=== PATIENT | male | born 1960 | race Caucasian/White ===

== ENCOUNTER 2021-09-22 14:12 | Emergency (ER) | payer OTHER, SELFPAY ==
[2021-09-22] VITALS (7 sets, daily range): BP systolic 195–201; BP diastolic 98–117; PULSE 85; RESP 16–18; TEMP 36.8; O2SAT 93–96; BMI 39.1
--- NOTE | 2021-09-22 14:43 | XR_ITS ---
WS: [id number] Chest with right rib detail, 09/22/2021 Clinical Data: fall 10 ft Comparison: PA and lateral chest, 08/09/2016. Findings: The lungs show no nodules, masses, or effusions. The heart is enlarged. No pneumonia or pneumothorax is seen. The ribs are intact. No rib fractures seen. No subcutaneous emphysema is present. The soft tissues are normal. The adjacent scapula and right clavicle are unremarkable. XR/XR ribs RT mn 3V w [id number] Impression: Negative chest with right rib detail.
--- NOTE | 2021-09-22 15:58 | CTR_ITS ---
PROCEDURE INFORMATION: Exam: CT Thoracic Spine Without Contrast Exam date and time: 09/22/2021 3:58 PM Age: 61 years old Clinical indication: Work related blunt trauma. Fall from 10 ft landing on back. TECHNIQUE: Imaging protocol: Computed tomography images of the thoracic spine without contrast. Radiation optimization: All CT scans at this facility use at least one of these dose optimization techniques: automated exposure control; mA and/or kV adjustment per patient size (includes targeted exams where dose is matched to clinical indication); or iterative reconstruction. COMPARISON: CR XR ribs RT mn 3V w CXR1V [id number] 09/22/2021 2:55 PM RADIATION DOSE METRICS: Total DLP (mGy-cm): 2309.54 FINDINGS: Vertebrae: Nondisplaced fracture involving the left transverse process of L1. There are nondisplaced/mildly displaced fractures involving the T5-T9 spinous processes. Other bones/joints: Nondisplaced fractures involving the posterior left 5th and 6th ribs Lymph nodes: A right paratracheal lymph node measures 1.2 x 1.0 cm. Chest: Possible small left hemothorax. CT/CT thoracic spin wo con* [id number] IMPRESSION: 1. There are nondisplaced/mildly displaced fractures involving the T5-T9 spinous processes. 2. Nondisplaced fractures involving the posterior left 5th and 6th ribs 3. Nondisplaced fracture involving the left transverse process of L1. 4. Possible small left hemothorax. 5. Mild mediastinal lymphadenopathy. 6. Recommend CT chest to further assess. Radiation Dose CTDIVOL = (mGy): DLP = 2309.54 (mGy-cm)
[2021-09-22] MEDS: ketorolac 30 mg/mL INJ IM (16:22)
--- NOTE | 2021-09-22 16:22 | W.ED.FALL ---
Documented by User: Nohelia Medellin PA-C 09/22/21 16:29 HPI - Fall General: Chief Complaint: Fall Stated Complaint: 8-10 FT FALL FROM LADDER: BACK/NECK PAIN (WC) Time Seen by Provider: 09/22/21 15:49 Source: patient Mode of arrival: ambulatory Limitations: no limitations History of Present Illness: HPI Narrative: 61-year-old male presents to the ER today after falling off a ladder approximately 10 feet. Patient reports he was at work when this happened. He reports he slipped and landed on his bottom and then hit the back of his head. Patient reports his pain is mostly located in the mid back. He reports he saw stars but did not lose consciousness. Patient denies any head pain, headache, neck pain at this time. Patient reports some right-sided rib pain with deep breaths. Patient denies any prior injury. Patient denies any alcohol or drug use. Patient denies chest pain or shortness of breath, nausea, vomiting, diarrhea, constipation. MD complaint: fall Onset (ago): hour(s) Fall from: standing and from height (distance) (10 ft) Fall witnessed: no Place fall occurred: work Loss of consciousness: None Symptoms prior to fall: none Context: tripped/slipped Location of injury: chest and back Severity: moderate Severity scale (1-10): 7 Quality: sharp Associated symptoms-after fall: Reports chest pain (with deep breaths); Denies abdominal pain, headache(s) or neck pain Review of Systems General: Reports: 10 or more systems reviewed and unremarkable except in HPI and below Const: Denies: fever(s), chills or body aches Eyes: Denies: change in vision or blurry vision ENMT: Denies: throat pain, nasal discharge or nasal congestion Card: Reports: chest pain (with deep breaths); Denies: palpitations Resp: Denies: dyspnea, productive cough or wheezing GI: Denies: abdominal pain, nausea, vomiting, diarrhea or constipation Musc: Reports: back pain (mid back); Denies: neck pain, extremity pain, extremity swelling, joint pain or joint swelling Skin/Breast: Denies: rash or pruritus Neuro: Denies: headache(s), numbness in extremities, weakness in extremities, lack of coordination or dizziness Physical Exam Const: COMMON NORMALS: patient oriented x3, no limitations, healthy appearing and alert GENERAL APPEARANCE: cooperative; not comfortable (pt appears very sore with movement) NUTRITIONAL APPEARANCE: obese ORIENTATION/CONSCIOUSNESS: Yes oriented to person, Yes oriented to place and Yes oriented to time HENMT: COMMON NORMALS: normocephalic, atraumatic, external ears normal and Normal external nose present HEAD & SCALP: normocephalic and atraumatic; no scalp tenderness NOSE: Normal external nose present EXTERNAL EAR: Yes external ears normal Eye: COMMON NORMALS: EOMs intact bilaterally and conjunctivae normal CONJUNCTIVA: Yes conjunctivae normal Neck/C-Spine: COMMON NORMALS: full ROM, no lymphadenopathy and supple CERVICAL SPINE: Yes cervical ROM normal, No pain with cervical ROM, No Cervical spine tenderness, No Paracervical muscle tenderness, No Paracervical spasm, No Trapezius muscle tenderness and Yes collar present (cleared after exam) Lymph: LYMPHATIC: no lymphadenopathy noted Chest: COMMONS NORMALS: normal palpation of entire chest wall (tender on the R side to palpation) Resp: COMMON NORMALS: normal respiratory effort, No retractions and clear to auscultation bilaterally EFFORT & INSPECTION: Yes able to speak in complete sentences AUSCULTATION: clear to auscultation bilaterally, no rales, no rhonchi and no wheezes Cardio: COMMON NORMALS: regular rate, regular rhythm and No murmurs present (Cardio) RATE: regular rate RHYTHM: regular rhythm GI: COMMON NORMALS: Normal to inspection, nondistended, normoactive bowel sounds present, Soft to palpation and non-tender PALPATION: Yes Soft to palpation : COMMON NORMALS: Yes no CVA tenderness BLADDER/KIDNEY EXAM: Yes no CVA tenderness Back/Pelvis: COMMON NORMALS: no CVA tenderness THORACIC SPINE/UPPER BACK: Yes normal to inspection, Yes thoracic ROM normal, Yes thoracic spinal tenderness, Yes paraspinal muscle tenderness and No paraspinal muscle spasm LUMBAR SPINE/LOWER BACK: Yes normal to inspection, Yes lumbar ROM normal, No lumbar spinal tenderness, No paraspinal muscle tenderness and No paraspinal muscle spasm Extremity: COMMON NORMALS: normal to inspection and full ROM Neuro: COMMON NORMALS: patient oriented x3, moves all extremities, no sensory deficits noted and gait normal SENSORIUM/ORIENTATION: Yes alert, Yes oriented to person, Yes oriented to place and Yes oriented to time GAIT: Yes Normal gait present Psych: COMMON NORMALS: mental status grossly normal, Normal thought process present, cooperative, normal affect and speech normal SPEECH: Yes normal speech THOUGHT PROCESS: Normal thought process present Skin: COMMON NORMALS: no rashes or lesions noted and no wounds GENERAL SKIN EXAM: no rashes or lesions noted Course ED course: Patient presents to the ER after falling 10 feet off a ladder at work. Patient has mid back pain that is worse with movement in addition to chest pain that is worse with deep breaths. Patient is in a c-collar however reports the c-collar is causing him more discomfort than the neck itself. After c-collar was removed, patient is nontender to palpation along the C-spine and along the paraspinal muscles. Patient has normal range of motion with no pain side to side. We will get a CT of the T-spine given pain and mechanism of fall and landing. Rib study also performed given rib/chest pain. Patient given Toradol for pain however needs a drug screen and alcohol screen for his employer which we do not do here. Vital Signs: Vital signs: Vital Signs Temperature 98.2 F 09/22/21 14:34 Pulse Rate 85 09/22/21 14:34 Respiratory Rate 18 09/22/21 17:56 Blood Pressure 195/117 09/22/21 21:40 Pulse Oximetry 96 09/22/21 21:40 MDM - Fall Lab Data: Labs: Lab Results 09/22/21 09/22/21 09/22/21 17:50 18:20 18:20 WBC 17.9 10^3/uL H 10 ^3/uL (4.0-10.0) RBC 4.95 10^6/uL 10^6 /uL (4.1-5.3) Hgb 14.5 g/dL g/dL (11.7-16.6) Hct 45.0 % % (42.0-52.0) MCV 90.9 fl fl (80-94) MCH 29.3 pg pg (28.0-34.0) MCHC 32.2 g/dL g/dL (30.0-36.0) RDW 12.4 % % (12.1-15.1) Plt Count 298 10^3/cmm 10^3 /cmm (130-400) MPV 10.2 fL fL (7.4-10.4) Neut % (Auto) 78.4 % % Lymph % (Auto) 12.1 % % Sauk % (Auto) 7.9 % % Eos % (Auto) 0.3 % % Baso % (Auto) 0.6 % % Neut # (Auto) 14.01 10^3/uL H 1 0^3/uL (1.8-7.7) Lymph # (Auto) 2.2 10^3/uL 10^3/ uL (0.8-4.8) Sauk # (Auto) 1.4 10^3/uL H 10^ 3/uL (0.2-0.9) Eos # (Auto) 0.1 10^3/uL 10^3/ uL (0.0-0.8) Baso # (Auto) 0.1 10^3/uL 10^3/ uL (0.0-0.1) Nucleated RBC % (a uto) 0 % % Nucleated RBCs # 0.0 /100WBC /100W BC Sodium 138 mmol/L mmol/L (136-145) Potassium 4.2 mmol/L mmol/L (3.5-5.1) Chloride 104 mmol/L mmol/L (98-107) Carbon Dioxide 19 mmol/L L mmol/ L (22-29) Anion Gap 19.2 H (5-19) BUN 23 mg/dL mg/dL (8-23) Creatinine 1.1 mg/dL mg/dL (0.7-1.2) GFR Calculation 67.6 mL/min L mL/ min (90-130) Glucose 121 mg/dL H mg/dL (65-115) Calculated Osmolal ity 291 mOsm/kg mOsm/ kg (285-295) Calcium 8.4 mg/dL L mg/dL (8.5-10.5) Total Bilirubin 0.3 mg/dL mg/dL (0.15-1.2) AST 20 U/L U/L (0-40) ALT 19 U/L U/L (0-41) Alkaline Phosphata se 75 IU/L IU/L (40-130) Total Protein 6.5 g/dL L g/dL (6.6-8.7) Albumin 4.3 g/dL g/dL (3.5-5.2) Globulin 2.2 g/dL g/dL (1.3-4.6) Urine Opiates Scre en Negative ng/mL ng /mL (Negative) Ur Barbiturates Sc reen Negative ng/mL ng /mL (Negative) Ur Phencyclidine S crn Negative ng/mL ng /mL (Negative) Ur Amphetamines Sc reen Negative ng/mL ng /mL (Negative) U Benzodiazepines Scrn Negative ng/mL ng /mL (Negative) Urine Cocaine Scre en Negative ng/mL ng /mL (Negative) U Marijuana (THC) Screen Negative ng/mL ng /mL (Negative) SARS-CoV-2 Ag (Rap id) 09/22/21 22:10 WBC RBC Hgb Hct MCV MCH MCHC RDW Plt Count MPV Neut % (Auto) Lymph % (Auto) Sauk % (Auto) Eos % (Auto) Baso % (Auto) Neut # (Auto) Lymph # (Auto) Sauk # (Auto) Eos # (Auto) Baso # (Auto) Nucleated RBC % (a uto) Nucleated RBCs # Sodium Potassium Chloride Carbon Dioxide Anion Gap BUN Creatinine GFR Calculation Glucose Calculated Osmolal ity Calcium Total Bilirubin AST ALT Alkaline Phosphata se Total Protein Albumin Globulin Urine Opiates Scre en Ur Barbiturates Sc reen Ur Phencyclidine S crn Ur Amphetamines Sc reen U Benzodiazepines Scrn Urine Cocaine Scre en U Marijuana (THC) Screen SARS-CoV-2 Ag (Rap id) Negative (Negative) Critical Care Time Critical Care Time: Critical Care Time: No Discharge Plan Discharge Patient Disposition: Transfer to ED Sign Out Sign Out Data: Patient Sign Out occurred on 09/22/21 at 17:02. Patient's care was discussed, and care was transferred from to NIELS Morgan. Coding Level of Care Code ED [employer] for Chg Fwd Exam Comprehensive Documented by User: NIELS Morgan 09/23/21 00:55 HPI - Fall General: Chief Complaint: Fall Stated Complaint: 8-10 FT FALL FROM LADDER: BACK/NECK PAIN (WC) Time Seen by Provider: 09/22/21 15:49 Course Consultations: Consultation #1: I contacted Dr. Tan to tell him about CT thoracic spine findings. He thought based off of patient's CT thoracic spine findings of T5-T9 nondisplaced fractures, patient could be discharged home with a brace and he can follow-up with patient in clinic. Consultation #2: I spoke with Dr. Ledesma the ER doctor at [facility] below about patient case. He accepted transfer of patient to [facility] ER. Time: 21:51 Vital Signs: Vital signs: Vital Signs Temperature 98.2 F 09/22/21 14:34 Pulse Rate 85 09/22/21 14:34 Respiratory Rate 18 09/22/21 17:56 Blood Pressure 195/117 09/22/21 21:40 Pulse Oximetry 96 09/22/21 21:40 MDM - Fall MDM Narrative: Medical decision making narrative: I took over patient care from [facility] the physician social human services assistants at shift change. Patient discharged plan was pending CT thoracic spine and right rib x-rays. Patient had a fall from about 10 feet in the air and was complaining of mid back pain. Right rib x-ray was negative for any acute fractures or findings. CT thoracic spine showed 2 rib fractures along with nondisplaced fractures of T5-T9. Radiologist recommended doing a CT of the chest. Due to mechanism of injury and multiple rib and thoracic vertebrae fractures I added a CT of patient's chest, abdomen, pelvis, cervical spine and head. CT of head and cervical spine came back with no acute fractures or findings. CT of chest showed multiple nondisplaced rib fractures on the left side ribs 4- 9. Patient also had nondisplaced right seventh rib fracture as well. There was also left L1 and L2 transverse process fracture that was minimally displaced. Also some mild subcutaneous edema over lower abdomen likely result of contusion secondary to trauma. Due to patient's multiple rib fractures and thoracic spine fractures. I talked with Dr. Higgins and Dr. Lowe about patient case and possible transfer to [facility] for further evaluation. They agreed and I contacted [facility] and Dr. Dr. Jeffery and they accepted in ER to ER transfer. Patient was given morphine while here in the ED and it seemed to manage his pain well. Patient's vitals were stable and he was stable for transfer. While here in the ED patient was put in a TLSO brace by [employer]. I also consulted Dr. Tan about patient case and his multiple thoracic spine nondisplaced fractures and he said he would see him for outpatient follow-up as needed. Lab Data: Attestation: I reviewed the patient's lab results. Labs: Lab Results 09/22/21 09/22/21 09/22/21 17:50 18:20 18:20 WBC 17.9 10^3/uL H 10 ^3/uL (4.0-10.0) RBC 4.95 10^6/uL 10^6 /uL (4.1-5.3) Hgb 14.5 g/dL g/dL (11.7-16.6) Hct 45.0 % % (42.0-52.0) MCV 90.9 fl fl (80-94) MCH 29.3 pg pg (28.0-34.0) MCHC 32.2 g/dL g/dL (30.0-36.0) RDW 12.4 % % (12.1-15.1) Plt Count 298 10^3/cmm 10^3 /cmm (130-400) MPV 10.2 fL fL (7.4-10.4) Neut % (Auto) 78.4 % % Lymph % (Auto) 12.1 % % Sauk % (Auto) 7.9 % % Eos % (Auto) 0.3 % % Baso % (Auto) 0.6 % % Neut # (Auto) 14.01 10^3/uL H 1 0^3/uL (1.8-7.7) Lymph # (Auto) 2.2 10^3/uL 10^3/ uL (0.8-4.8) Sauk # (Auto) 1.4 10^3/uL H 10^ 3/uL (0.2-0.9) Eos # (Auto) 0.1 10^3/uL 10^3/ uL (0.0-0.8) Baso # (Auto) 0.1 10^3/uL 10^3/ uL (0.0-0.1) Nucleated RBC % (a uto) 0 % % Nucleated RBCs # 0.0 /100WBC /100W BC Sodium 138 mmol/L mmol/L (136-145) Potassium 4.2 mmol/L mmol/L (3.5-5.1) Chloride 104 mmol/L mmol/L (98-107) Carbon Dioxide 19 mmol/L L mmol/ L (22-29) Anion Gap 19.2 H (5-19) BUN 23 mg/dL mg/dL (8-23) Creatinine 1.1 mg/dL mg/dL (0.7-1.2) GFR Calculation 67.6 mL/min L mL/ min (90-130) Glucose 121 mg/dL H mg/dL (65-115) Calculated Osmolal ity 291 mOsm/kg mOsm/ kg (285-295) Calcium 8.4 mg/dL L mg/dL (8.5-10.5) Total Bilirubin 0.3 mg/dL mg/dL (0.15-1.2) AST 20 U/L U/L (0-40) ALT 19 U/L U/L (0-41) Alkaline Phosphata se 75 IU/L IU/L (40-130) Total Protein 6.5 g/dL L g/dL (6.6-8.7) Albumin 4.3 g/dL g/dL (3.5-5.2) Globulin 2.2 g/dL g/dL (1.3-4.6) Urine Opiates Scre en Negative ng/mL ng /mL (Negative) Ur Barbiturates Sc reen Negative ng/mL ng /mL (Negative) Ur Phencyclidine S crn Negative ng/mL ng /mL (Negative) Ur Amphetamines Sc reen Negative ng/mL ng /mL (Negative) U Benzodiazepines Scrn Negative ng/mL ng /mL (Negative) Urine Cocaine Scre en Negative ng/mL ng /mL (Negative) U Marijuana (THC) Screen Negative ng/mL ng /mL (Negative) SARS-CoV-2 Ag (Rap id) 09/22/21 22:10 WBC RBC Hgb Hct MCV MCH MCHC RDW Plt Count MPV Neut % (Auto) Lymph % (Auto) Sauk % (Auto) Eos % (Auto) Baso % (Auto) Neut # (Auto) Lymph # (Auto) Sauk # (Auto) Eos # (Auto) Baso # (Auto) Nucleated RBC % (a uto) Nucleated RBCs # Sodium Potassium Chloride Carbon Dioxide Anion Gap BUN Creatinine GFR Calculation Glucose Calculated Osmolal ity Calcium Total Bilirubin AST ALT Alkaline Phosphata se Total Protein Albumin Globulin Urine Opiates Scre en Ur Barbiturates Sc reen Ur Phencyclidine S crn Ur Amphetamines Sc reen U Benzodiazepines Scrn Urine Cocaine Scre en U Marijuana (THC) Screen SARS-CoV-2 Ag (Rap id) Negative (Negative) Imaging Data^: Other CT: Attestation: I personally reviewed and interpreted this imaging study as follows: Radiologist's impression: [address] [address] [address] Scan Report Signed Patient: Gómez Jha Unit #: [id number] : 1960 Age/Sex: 61 / M ADM Date: 09/22/21 Loc: ER Room/Bed: Attending Dr: Ordering Provider/Ordering MD: Matt Bautista Date of Service: 09/22/21 Procedure(s): CT head wo con* [id number] Accession Number(s): [id number] Report Number: [id number] PROCEDURE INFORMATION: Exam: CT Head Without Contrast Exam date and time: 09/22/2021 5:27 PM Age: 61 years old Clinical indication: Injury or trauma; Blunt trauma (contusions or hematomas); Without loss of consciousness; Patient HX: Fall from ladder -loc; Additional info: Fall injury and hit head, no loc TECHNIQUE: Imaging protocol: Computed tomography of the head without contrast. Radiation optimization: All CT scans at this facility use at least one of these dose optimization techniques: automated exposure control; mA and/or kV adjustment per patient size (includes targeted exams where dose is matched to clinical indication); or iterative reconstruction. COMPARISON: No relevant prior studies available. RADIATION DOSE METRICS: Total DLP (mGy-cm): 1023.24 FINDINGS: Brain: Mild volume loss and white matter disease are identified. There is no acute infarct or edema. No hemorrhage. Cerebral ventricles: No ventriculomegaly. Paranasal sinuses: Visualized sinuses are unremarkable. No fluid levels. Mastoid air cells: Visualized mastoid air cells are well aerated. Bones/joints: Unremarkable. No acute fracture. Soft tissues: Unremarkable. CT/CT head wo con* [id number] IMPRESSION: There are no acute concerning abnormalities. Radiation Dose CTDIVOL = (mGy): DLP = 1023.24 (mGy-cm) Dictated By: Alysa Raya MD Signed By: Alysa Raya MD Signed Date/Time: 09/22/212013 DD/ [address] [place] [address] [address] Scan Report Signed Patient: Gómez Jha Unit #: [id number] : 1960 Age/Sex: 61 / M ADM Date: 09/22/21 Loc: ER Room/Bed: Attending Dr: Ordering Provider/Ordering MD: Matt Bautista Date of Service: 09/22/21 Procedure(s): CT cervical spin wo con* [id number] Accession Number(s): [id number] Report Number: [id number] PROCEDURE INFORMATION: Exam: CT Cervical Spine Without Contrast Exam date and time: 09/22/2021 5:27 PM Age: 61 years old Clinical indication: Injury or trauma; Blunt trauma; Patient HX: Fall from ladder; Additional info: Fall injury with neck pain TECHNIQUE: Imaging protocol: Computed tomography images of the cervical spine without contrast. Radiation optimization: All CT scans at this facility use at least one of these dose optimization techniques: automated exposure control; mA and/or kV adjustment per patient size (includes targeted exams where dose is matched to clinical indication); or iterative reconstruction. COMPARISON: CT head wo con* [id number] 09/22/2021 7:13 PM RADIATION DOSE METRICS: Total DLP (mGy-cm): 992.34 FINDINGS: Vertebrae: No acute fracture. Normal alignment. Degenerative change is identified in the spine. There is disc space narrowing and osteophyte formation especially at C5/6 and C6/7. Soft tissues: Unremarkable. Lungs: Lung apices are normal. CT/CT cervical spin wo con* [id number] IMPRESSION: There is no evidence for fracture or facet dislocation. Radiation Dose CTDIVOL = (mGy): DLP = 992.34 (mGy-cm) Dictated By: Alysa Raya MD Signed By: Alysa Raya MD Signed Date/Time: 09/22/212017 DD/ [address] [place] [address] [address] Scan Report Signed with Lay Patient: Gómez Jha Unit #: [id number] : 1960 Age/Sex: 61 / M ADM Date: 09/22/21 Loc: ER Room/Bed: Attending Dr: Ordering Provider/Ordering MD: Nohelia Medellin Date of Service: 09/22/21 Procedure(s): CT thoracic spin wo con* [id number] Accession Number(s): [id number] Report Number: [id number]/CT thoracic spin wo con* [id number] Findings discussed with NIELS Bautista at 09/22/2021 5:24 PM 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 Radiation Dose CTDIVOL = (mGy): DLP = 2309.54 (mGy-cm) Addendum Dictated By: Thomas Canales Addendum Signed By: Thomas Canales Signed Date/Time: 09/22/211728 Addendum Cosigned By: PROCEDURE INFORMATION: Exam: CT Thoracic Spine Without Contrast Exam date and time: 09/22/2021 3:58 PM Age: 61 years old Clinical indication: Work related blunt trauma. Fall from 10 ft landing on back. TECHNIQUE: Imaging protocol: Computed tomography images of the thoracic spine without contrast. Radiation optimization: All CT scans at this facility use at least one of these dose optimization techniques: automated exposure control; mA and/or kV adjustment per patient size (includes targeted exams where dose is matched to clinical indication); or iterative reconstruction. COMPARISON: CR XR ribs RT mn 3V w CXR1V [id number] 09/22/2021 2:55 PM RADIATION DOSE METRICS: Total DLP (mGy-cm): 2309.54 FINDINGS: Vertebrae: Nondisplaced fracture involving the left transverse process of L1. There are nondisplaced/mildly displaced fractures involving the T5-T9 spinous processes. Other bones/joints: Nondisplaced fractures involving the posterior left 5th and 6th ribs Lymph nodes: A right paratracheal lymph node measures 1.2 x 1.0 cm. Chest: Possible small left hemothorax. CT/CT thoracic spin wo con* [id number] IMPRESSION: 1. There are nondisplaced/mildly displaced fractures involving the T5-T9 spinous processes. 2. Nondisplaced fractures involving the posterior left 5th and 6th ribs 3. Nondisplaced fracture involving the left transverse process of L1. 4. Possible small left hemothorax. 5. Mild mediastinal lymphadenopathy. 6. Recommend CT chest to further assess. Radiation Dose CTDIVOL = (mGy): DLP = 2309.54 (mGy-cm) Dictated By: Thomas Canales Signed By: Thomas Canales Signed Date/Time: 09/22/21 1718 DD/ 1558 CT Abd/Pel: Attestation: I personally reviewed and interpreted this imaging study as follows: Radiologist's impression: [address] [address] [address] Scan Report Signed Patient: Gómez Jha Unit #: [id number] : 1960 Age/Sex: 61 / M ADM Date: 09/22/21 Loc: ER Room/Bed: Attending Dr: Ordering Provider/Ordering MD: Matt Bautista Date of Service: 09/22/21 Procedure(s): CT chest abd pel w con* Accession Number(s): [id number] Report Number: [id number] PROCEDURE INFORMATION: Exam: CT Chest With Contrast; Diagnostic Exam date and time: 09/22/2021 5:27 PM Age: 61 years old Clinical indication: Injury or trauma; Generalized; Blunt trauma (contusions or hematomas); Patient HX: C/O rib pain after backwards fall from ladder; Additional info: Fall injury with bilateral rib pain TECHNIQUE: Imaging protocol: Diagnostic computed tomography of the chest with contrast. Sagittal and coronal reformatted images were created and reviewed. Radiation optimization: All CT scans at this facility use at least one of these dose optimization techniques: automated exposure control; mA and/or kV adjustment per patient size (includes targeted exams where dose is matched to clinical indication); or iterative reconstruction. Contrast material: OMNI 300; Contrast volume: 95 ml; Contrast route: INTRAVENOUS (IV); COMPARISON: 1. CR XR ribs RT mn 3V w CXR1V [id number] 09/22/2021 2:[address] thor the acic spin wo con* [id number] 09/22/2021 4:33:54 PM RADIATION DOSE METRICS: Total DLP (mGy-cm): 2559.4 FINDINGS: Trachea: Tracheobronchial structures are patent. Lungs: No pulmonary parenchymal nodules or masses. Dependent atelectasis in the lungs bilaterally. Pleural spaces: Mild pleural thickening adjacent to the right 7th rib fracture. No pleural effusion. No pneumothorax. Heart: Mild enlargement of the heart. Esophagus: The esophagus is unremarkable. Mediastinal space: No mediastinal hematoma. No pneumomediastinum. Pulmonary arteries: Pulmonary arteries are unremarkable. Aorta: Mild atherosclerotic changes in the visualized arteries. No extravasation of contrast from the thoracic vessels. Veins: Pulmonary veins are unremarkable. Lymph nodes: No lymphadenopathy. Bones/joints: Nondisplaced fracture of the lateral right 7th rib. Nondisplaced fractures of the anterolateral left 4th, 5th, 6th, 7th, 8th, and 9th ribs and the posterior left 5th and 6th ribs. Left 5th and 6th posterior rib fractures are stable. Mildly displaced fractures of the spinous processes of T5, T6, T7, T8, and T9 are stable. Soft tissues: No acute abnormality in the extrathoracic soft tissues. PROCEDURE INFORMATION: Exam: CT Abdomen And Pelvis With Contrast Exam date and time: 09/22/2021 5:27 PM Age: 61 years old Clinical indication: Injury or trauma; Generalized; Blunt trauma (contusions or hematomas); Patient HX: C/O rib pain after backwards fall from ladder; Additional info: Fall injury with bilateral rib pain TECHNIQUE: Imaging protocol: Computed tomography of the abdomen and pelvis with contrast. Sagittal and coronal reformatted images were created and reviewed. Radiation optimization: All CT scans at this facility use at least one of these dose optimization techniques: automated exposure control; mA and/or kV adjustment per patient size (includes targeted exams where dose is matched to clinical indication); or iterative reconstruction. Contrast material: OMNI 300; Contrast volume: 95 ml; Contrast route: INTRAVENOUS (IV); COMPARISON: CR XR ribs RT mn 3V w CXR1V [id number] 09/22/2021 2:55 PM RADIATION DOSE METRICS: Total DLP (mGy-cm): 2559.4 FINDINGS: Liver: The liver is unremarkable. Gallbladder and bile ducts: The gallbladder is unremarkable. No biliary ductal dilatation. Pancreas: The pancreas is unremarkable. No pancreatic ductal dilatation. Spleen: The spleen is unremarkable. Adrenal glands: The right and left adrenal glands are unremarkable. Kidneys and ureters: Simple cysts in both right and left kidneys. Two cysts in the right kidney, the larger measures 1.7 cm. Cyst in the left kidney measures 1.1 cm. The right and left ureters are unremarkable. Stomach and bowel: Increased fecal content in the colon. The stomach is collapsed, which can limit evaluation. No focal abnormality in the stomach otherwise. No acute abnormality in the small bowel. Appendix: The appendix is visualized and is unremarkable. No findings to suggest acute appendicitis. Intraperitoneal space: No free intraperitoneal air. No ascites. No loculated fluid collections to suggest an abscess. Vasculature: Hepatic veins, portal veins, splenic vein, and SMV are patent. .Mild atherosclerotic changes in the visualized arteries. No evidence for aortic aneurysm or aortic dissection. Lymph nodes: No lymphadenopathy. Urinary bladder: Unremarkable as visualized. Reproductive: The prostate gland is mildly enlarged. Nonspecific parenchymal calcifications in the prostate gland. Bones/joints: Mild degenerative changes in the visualized spine. Mild degenerative changes at both the right and left hips. Bone islands in the proximal right and left femurs. Minimally displaced fractures of the left L1 and L2 transverse processes. Bilateral pars defects at L5. Soft tissues: Areas of mild subcutaneous edema anteriorly over the lower abdomen, this may represent subcutaneous contusion secondary to trauma. CT/CT chest abd pel w con* IMPRESSION: 1. Nondisplaced fracture of the lateral right 7th rib. Mild pleural thickening adjacent to the right 7th rib fracture. 3. Nondisplaced fractures of the anterolateral left 4th, 5th, 6th, 7th, 8th, and 9th ribs and the posterior left 5th and 6th ribs. Left 5th and 6th posterior rib fractures are stable. 4. Mildly displaced fractures of the spinous processes of T5, T6, T7, T8, and T9 are stable. 5. Dependent atelectasis in the lungs bilaterally. IMPRESSION: 1. Minimally displaced fractures of the left L1 and L2 transverse processes. 2. Areas of mild subcutaneous edema anteriorly over the lower abdomen, this may represent subcutaneous contusions secondary to trauma. 3. Incidental/nonacute findings are listed in the report. COMMENTS: Consistent with the [employer]'s Incidental Findings Committee white paper ([employer]iol 2018): Any incidental renal lesion less than 1 cm or classified as too small to characterize, or any incidental cystic renal lesion characterized as simple-appearing, is likely benign. No follow-up imaging is recommended for these lesions per consensus recommendations based on imaging criteria. Radiation Dose CTDIVOL = (mGy): DLP = 2559.4 2559.4 (mGy-cm) Dictated By: Gina Reyes MD Signed By: Gina Reyes MD Signed Date/Time: 09/22/212031 DD/ 26 CXR: Attestation: I personally reviewed and interpreted this imaging study as follows: Radiologist's impression: [address] [id number] ReportSigned Patient: Gómez Jha #: [id number]: 8Acct#:[id number]/Sex: 61 / MADM Date: 09/22/21Loc: ERRoom/Bed:Attending Dr: Ordering Provider/Ordering MD: Nohelia Medellin Date of Service: 09/22/21 Procedure(s): XR ribs RT mn 3V w CXR1V 26134 Accession Number(s): [id number] Report Number: [id number] WS: [id number] Chest with right rib detail, 09/22/2021 Clinical Data: fall 10 ft Comparison: PA and lateral chest, 08/09/2016. Findings: The lungs show no nodules, masses, or effusions. The heart is enlarged. No pneumonia or pneumothorax is seen. The ribs are intact. No rib fractures seen. No subcutaneous emphysema is present. The soft tissues are normal. The adjacent scapula and right clavicle are unremarkable. XR/XR ribs RT mn 3V w CXR1V [id number] Impression: Negative chest with right rib detail. Dictated By:Deysi Garvey MDSigned By:Deysi Garvey MDSigned Date/Time:09/22/21 1516DD/ 1513 Discharge Plan Discharge Patient Disposition: Transfer to ED Sign Out Sign Out Data: Patient Sign Out occurred on 09/22/21 at 17:02. Patient's care was discussed, and care was transferred from to NIELS Morgan. Coding Level of Care Code ED [employer] for Chg Fwd Exam Comprehensive Documented by User: Richard Higgins MD 09/28/21 23:57 HPI - Fall General: Chief Complaint: Fall Stated Complaint: 8-10 FT FALL FROM LADDER: BACK/NECK PAIN (WC) Time Seen by Provider: 09/22/21 15:49 Course Vital Signs: Vital signs: Vital Signs Temperature 98.2 F 09/22/21 14:34 Pulse Rate 85 09/22/21 14:34 Respiratory Rate 18 09/22/21 17:56 Blood Pressure 195/117 09/22/21 21:40 Pulse Oximetry 96 09/22/21 21:40 MDM - Fall MDM Narrative: Medical decision making narrative: I discussed this case with NIELS Morgan and ordered additional testing as indicated. Myself and Dr. Lowe comanaged additional care. The patient has a number of traumatic injuries which make him high risk for discharge, as we do not have a trauma service he requires transfer. Patient was seen by ED physician who will be performed thomas portions of E/M. I reviewed documentation, imaging, labs and agree as documented. Richard Higgins MD Emergency Medicine Lab Data: Labs: Lab Results 09/22/21 09/22/21 09/22/21 17:50 18:20 18:20 WBC 17.9 10^3/uL H 10 ^3/uL (4.0-10.0) RBC 4.95 10^6/uL 10^6 /uL (4.1-5.3) Hgb 14.5 g/dL g/dL (11.7-16.6) Hct 45.0 % % (42.0-52.0) MCV 90.9 fl fl (80-94) MCH 29.3 pg pg (28.0-34.0) MCHC 32.2 g/dL g/dL (30.0-36.0) RDW 12.4 % % (12.1-15.1) Plt Count 298 10^3/cmm 10^3 /cmm (130-400) MPV 10.2 fL fL (7.4-10.4) Neut % (Auto) 78.4 % % Lymph % (Auto) 12.1 % % [place] % (Auto) 7.9 % % Eos % (Auto) 0.3 % % Baso % (Auto) 0.6 % % Neut # (Auto) 14.01 10^3/uL H 1 0^3/uL (1.8-7.7) Lymph # (Auto) 2.2 10^3/uL 10^3/ uL (0.8-4.8) Sau[place] # (Auto) 1.4 10^3/uL H 10^ 3/uL (0.2-0.9) Eos # (Auto) 0.1 10^3/uL 10^3/ uL (0.0-0.8) Baso # (Auto) 0.1 10^3/uL 10^3/ uL (0.0-0.1) Nucleated RBC % (a uto) 0 % % Nucleated RBCs # 0.0 /100WBC /100W BC Sodium 138 mmol/L mmol/L (136-145) Potassium 4.2 mmol/L mmol/L (3.5-5.1) Chloride 104 mmol/L mmol/L (98-107) Carbon Dioxide 19 mmol/L L mmol/ L (22-29) Anion Gap 19.2 H (5-19) BUN 23 mg/dL mg/dL (8-23) Creatinine 1.1 mg/dL mg/dL (0.7-1.2) GFR Calculation 67.6 mL/min L mL/ min (90-130) Glucose 121 mg/dL H mg/dL (65-115) Calculated Osmolal ity 291 mOsm/kg mOsm/ kg (285-295) Calcium 8.4 mg/dL L mg/dL (8.5-10.5) Total Bilirubin 0.3 mg/dL mg/dL (0.15-1.2) AST 20 U/L U/L (0-40) ALT 19 U/L U/L (0-41) Alkaline Phosphata se 75 IU/L IU/L (40-130) Total Protein 6.5 g/dL L g/dL (6.6-8.7) Albumin 4.3 g/dL g/dL (3.5-5.2) Globulin 2.2 g/dL g/dL (1.3-4.6) Urine Opiates Scre en Negative ng/mL ng /mL (Negative) Ur Barbiturates Sc reen Negative ng/mL ng /mL (Negative) Ur Phencyclidine S crn Negative ng/mL ng /mL (Negative) Ur Amphetamines Sc reen Negative ng/mL ng /mL (Negative) U Benzodiazepines Scrn Negative ng/mL ng /mL (Negative) Urine Cocaine Scre en Negative ng/mL ng /mL (Negative) U Marijuana (THC) Screen Negative ng/mL ng /mL (Negative) SARS-CoV-2 Ag (Rap id) 09/22/21 22:10 WBC RBC Hgb Hct MCV MCH MCHC RDW Plt Count MPV Neut % (Auto) Lymph % (Auto) [place] % (Auto) Eos % (Auto) Baso % (Auto) Neut # (Auto) Lymph # (Auto) [place] # (Auto) Eos # (Auto) Baso # (Auto) Nucleated RBC % (a uto) Nucleated RBCs # Sodium Potassium Chloride Carbon Dioxide Anion Gap BUN Creatinine GFR Calculation Glucose Calculated Osmolal ity Calcium Total Bilirubin AST ALT Alkaline Phosphata se Total Protein Albumin Globulin Urine Opiates Scre en Ur Barbiturates Sc reen Ur Phencyclidine S crn Ur Amphetamines Sc reen U Benzodiazepines Scrn Urine Cocaine Scre en U Marijuana (THC) Screen SARS-CoV-2 Ag (Rap id) Negative (Negative) Discharge Plan Discharge Patient Disposition: Transfer to ED Sign Out Sign Out Data: Patient Sign Out occurred on 09/22/21 at 17:02. Patient's care was discussed, and care was transferred from to NIELS Morgan. Coding Level of Care Code ED [employer] [address] [employer] for Elizabeth Fwd Exam Comprehensive
--- NOTE | 2021-09-22 17:27 | CTR_ITS ---
PROCEDURE INFORMATION: Exam: CT Cervical Spine Without Contrast Exam date and time: 09/22/2021 5:27 PM Age: 61 years old Clinical indication: Injury or trauma; Blunt trauma; Patient HX: Fall from ladder; Additional info: Fall injury with neck pain TECHNIQUE: Imaging protocol: Computed tomography images of the cervical spine without contrast. Radiation optimization: All CT scans at this facility use at least one of these dose optimization techniques: automated exposure control; mA and/or kV adjustment per patient size (includes targeted exams where dose is matched to clinical indication); or iterative reconstruction. COMPARISON: CT head wo con* [id number] 09/22/2021 7:13 PM RADIATION DOSE METRICS: Total DLP (mGy-cm): 992.34 FINDINGS: Vertebrae: No acute fracture. Normal alignment. Degenerative change is identified in the spine. There is disc space narrowing and osteophyte formation especially at C5/6 and C6/7. Soft tissues: Unremarkable. Lungs: Lung apices are normal. CT/CT cervical spin wo con* [id number] IMPRESSION: There is no evidence for fracture or facet dislocation. Radiation Dose CTDIVOL = (mGy): DLP = 992.34 (mGy-cm)
--- NOTE | 2021-09-22 17:27 | CTR_ITS ---
PROCEDURE INFORMATION: Exam: CT Head Without Contrast Exam date and time: 09/22/2021 5:27 PM Age: 61 years old Clinical indication: Injury or trauma; Blunt trauma (contusions or hematomas); Without loss of consciousness; Patient HX: Fall from ladder -loc; Additional info: Fall injury and hit head, no loc TECHNIQUE: Imaging protocol: Computed tomography of the head without contrast. Radiation optimization: All CT scans at this facility use at least one of these dose optimization techniques: automated exposure control; mA and/or kV adjustment per patient size (includes targeted exams where dose is matched to clinical indication); or iterative reconstruction. COMPARISON: No relevant prior studies available. RADIATION DOSE METRICS: Total DLP (mGy-cm): 1023.24 FINDINGS: Brain: Mild volume loss and white matter disease are identified. There is no acute infarct or edema. No hemorrhage. Cerebral ventricles: No ventriculomegaly. Paranasal sinuses: Visualized sinuses are unremarkable. No fluid levels. Mastoid air cells: Visualized mastoid air cells are well aerated. Bones/joints: Unremarkable. No acute fracture. Soft tissues: Unremarkable. CT/CT head wo con* [id number] IMPRESSION: There are no acute concerning abnormalities. Radiation Dose CTDIVOL = (mGy): DLP = 1023.24 (mGy-cm)
--- NOTE | 2021-09-22 17:27 | CTR_ITS ---
PROCEDURE INFORMATION: Exam: CT Chest With Contrast; Diagnostic Exam date and time: 09/22/2021 5:27 PM Age: 61 years old Clinical indication: Injury or trauma; Generalized; Blunt trauma (contusions or hematomas); Patient HX: C/O rib pain after backwards fall from ladder; Additional info: Fall injury with bilateral rib pain TECHNIQUE: Imaging protocol: Diagnostic computed tomography of the chest with contrast. Sagittal and coronal reformatted images were created and reviewed. Radiation optimization: All CT scans at this facility use at least one of these dose optimization techniques: automated exposure control; mA and/or kV adjustment per patient size (includes targeted exams where dose is matched to clinical indication); or iterative reconstruction. Contrast material: OMNI 300; Contrast volume: 95 ml; Contrast route: INTRAVENOUS (IV); COMPARISON: 1. CR XR ribs RT mn 3V w CXR1V [id number] 09/22/2021 2:[address] thor the acic spin wo con* [id number] 09/22/2021 4:33:54 PM RADIATION DOSE METRICS: Total DLP (mGy-cm): 2559.4 FINDINGS: Trachea: Tracheobronchial structures are patent. Lungs: No pulmonary parenchymal nodules or masses. Dependent atelectasis in the lungs bilaterally. Pleural spaces: Mild pleural thickening adjacent to the right 7th rib fracture. No pleural effusion. No pneumothorax. Heart: Mild enlargement of the heart. Esophagus: The esophagus is unremarkable. Mediastinal space: No mediastinal hematoma. No pneumomediastinum. Pulmonary arteries: Pulmonary arteries are unremarkable. Aorta: Mild atherosclerotic changes in the visualized arteries. No extravasation of contrast from the thoracic vessels. Veins: Pulmonary veins are unremarkable. Lymph nodes: No lymphadenopathy. Bones/joints: Nondisplaced fracture of the lateral right 7th rib. Nondisplaced fractures of the anterolateral left 4th, 5th, 6th, 7th, 8th, and 9th ribs and the posterior left 5th and 6th ribs. Left 5th and 6th posterior rib fractures are stable. Mildly displaced fractures of the spinous processes of T5, T6, T7, T8, and T9 are stable. Soft tissues: No acute abnormality in the extrathoracic soft tissues. PROCEDURE INFORMATION: Exam: CT Abdomen And Pelvis With Contrast Exam date and time: 09/22/2021 5:27 PM Age: 61 years old Clinical indication: Injury or trauma; Generalized; Blunt trauma (contusions or hematomas); Patient HX: C/O rib pain after backwards fall from ladder; Additional info: Fall injury with bilateral rib pain TECHNIQUE: Imaging protocol: Computed tomography of the abdomen and pelvis with contrast. Sagittal and coronal reformatted images were created and reviewed. Radiation optimization: All CT scans at this facility use at least one of these dose optimization techniques: automated exposure control; mA and/or kV adjustment per patient size (includes targeted exams where dose is matched to clinical indication); or iterative reconstruction. Contrast material: OMNI 300; Contrast volume: 95 ml; Contrast route: INTRAVENOUS (IV); COMPARISON: CR XR ribs RT mn 3V w CXR1V [id number] 09/22/2021 2:55 PM RADIATION DOSE METRICS: Total DLP (mGy-cm): 2559.4 FINDINGS: Liver: The liver is unremarkable. Gallbladder and bile ducts: The gallbladder is unremarkable. No biliary ductal dilatation. Pancreas: The pancreas is unremarkable. No pancreatic ductal dilatation. Spleen: The spleen is unremarkable. Adrenal glands: The right and left adrenal glands are unremarkable. Kidneys and ureters: Simple cysts in both right and left kidneys. Two cysts in the right kidney, the larger measures 1.7 cm. Cyst in the left kidney measures 1.1 cm. The right and left ureters are unremarkable. Stomach and bowel: Increased fecal content in the colon. The stomach is collapsed, which can limit evaluation. No focal abnormality in the stomach otherwise. No acute abnormality in the small bowel. Appendix: The appendix is visualized and is unremarkable. No findings to suggest acute appendicitis. Intraperitoneal space: No free intraperitoneal air. No ascites. No loculated fluid collections to suggest an abscess. Vasculature: Hepatic veins, portal veins, splenic vein, and SMV are patent. .Mild atherosclerotic changes in the visualized arteries. No evidence for aortic aneurysm or aortic dissection. Lymph nodes: No lymphadenopathy. Urinary bladder: Unremarkable as visualized. Reproductive: The prostate gland is mildly enlarged. Nonspecific parenchymal calcifications in the prostate gland. Bones/joints: Mild degenerative changes in the visualized spine. Mild degenerative changes at both the right and left hips. Bone islands in the proximal right and left femurs. Minimally displaced fractures of the left L1 and L2 transverse processes. Bilateral pars defects at L5. Soft tissues: Areas of mild subcutaneous edema anteriorly over the lower abdomen, this may represent subcutaneous contusion secondary to trauma. CT/CT chest abd pel w con* IMPRESSION: 1. Nondisplaced fracture of the lateral right 7th rib. Mild pleural thickening adjacent to the right 7th rib fracture. 3. Nondisplaced fractures of the anterolateral left 4th, 5th, 6th, 7th, 8th, and 9th ribs and the posterior left 5th and 6th ribs. Left 5th and 6th posterior rib fractures are stable. 4. Mildly displaced fractures of the spinous processes of T5, T6, T7, T8, and T9 are stable. 5. Dependent atelectasis in the lungs bilaterally. IMPRESSION: 1. Minimally displaced fractures of the left L1 and L2 transverse processes. 2. Areas of mild subcutaneous edema anteriorly over the lower abdomen, this may represent subcutaneous contusions secondary to trauma. 3. Incidental/nonacute findings are listed in the report. COMMENTS: Consistent with the [employer]'s Incidental Findings Committee white paper (J [employer]iol 2018): Any incidental renal lesion less than 1 cm or classified as too small to characterize, or any incidental cystic renal lesion characterized as simple-appearing, is likely benign. No follow-up imaging is recommended for these lesions per consensus recommendations based on imaging criteria. Radiation Dose CTDIVOL = (mGy): DLP = 2559.4~2559.4 (mGy-cm)
[2021-09-22] MEDS: morphine 4 mg/mL SDV 1 mL IM (17:56)
[2021-09-22 18:07] LABS: Amphetamines Screen Urine Negative (Negative); Barbiturates Screen Urine Negative (Negative); Benzodiazepines Screen Urine Negative (Negative); Cocaine Screen Urine Negative (Negative); Opiate Screen Urine Negative (Negative); PCP Screen Urine Negative (Negative); THC Screen Urine Negative (Negative)
[2021-09-22 18:32] LABS: Basophils # 0.1 10^3/uL (0.0-0.1); Basophils % 0.6 %; Eosinophils # 0.1 10^3/uL (0.0-0.8); Eosinophils % 0.3 %; Hemoglobin 14.5 g/dL (11.7-16.6); Lymphocytes # 2.2 10^3/uL (0.8-4.8); Lymphocytes % 12.1 %; Mean Corpuscular HGB Conc 32.2 g/dL (30.0-36.0); Mean Corpuscular Hemoglobin 29.3 pg (28.0-34.0); Mean Corpuscular Volume 90.9 fl (80-94); Mean Platelet Volume 10.2 fL (7.4-10.4); Monocytes # 1.4 10^3/uL (0.2-0.9); Monocytes % 7.9 %; Neutrophils # 14.01 10^3/uL (1.8-7.7); Neutrophils % 78.4 %; Nucleated Red Blood Cells % 0 %; Platelet Count 298 10^3/cmm (130-400); Red Blood Count 4.95 10^6/uL (4.1-5.3); Red Cell Distribution Width 12.4 % (12.1-15.1); White Blood Count 17.9 10^3/uL (4.0-10.0)
[2021-09-22 19:01] LABS: Alanine Aminotransferase 19 U/L (0-41); Albumin Level 4.3 g/dL (3.5-5.2); Alkaline Phosphatase 75 IU/L (40-130); Anion Gap 19.2 (5-19); Aspartate Amino Transferase 20 U/L (0-40); Blood Urea Nitrogen 23 mg/dL (8-23); Calcium 8.4 mg/dL (8.5-10.5); Carbon Dioxide 19 mmol/L (22-29); Chloride 104 mmol/L (98-107); Globulin 2.2 g/dL (1.3-4.6); Glomerular Filtration Rate 67.6 mL/min (90-130); Glucose 121 mg/dL (65-115); Osmolality Calculated 291 mOsm/kg (285-295); Potassium 4.2 mmol/L (3.5-5.1); Sodium 138 mmol/L (136-145); Total Bilirubin 0.3 mg/dL (0.15-1.2); Total Protein 6.5 g/dL (6.6-8.7)
--- NOTE | 2021-09-22 19:06 | PC.NURSE ---
Pt. states that he is comfortable at this time. Pt. states that he is just waiting on his CT.
[2021-09-22] MEDS: iohexol 300 mg/mL 100 mL Btl IV (19:33)
[2021-09-22] MEDS: morphine 4 mg/mL SDV 1 mL IVP (21:09)
[2021-09-22 22:41] LABS: SARS Covid-2 Antigen Negative (Negative)
--- NOTE | 2021-09-25 10:44 | DCPLANNER ---
extrusion manager had message to schedule a follow up appointment for patient with ortho. extrusion manager called the ortho clinic, spoke with Omaira, gave clinic patients information. extrusion manager was told that patients information would be printed and reviewed. Clinic will call patient with appointment information.
--- NOTE | 2021-10-02 05:30 | DCPLANNER ---
Patient has a follow up appointment scheduled for Sunday, October 03, 2021 at 1:[address] Tan. Clinic will call patient with appointment information.
--- NOTE | 2021-10-13 11:57 | DCPLANNER ---
Patient had a follow up appointment with ortho - patient did attend appointment.
== END 2021-09-22 22:50 ==
PROVIDERS: Emergency Provider Physician Assistant
DX: S22.43XA Multiple fractures of ribs, bilateral, initial encounter for closed fracture (principal); S22.059A Unspecified fracture of T5-T6 vertebra, initial encounter for closed fracture; S22.069A Unspecified fracture of T7-T8 vertebra, initial encounter for closed fracture; S22.079A Unspecified fracture of T9-T10 vertebra, initial encounter for closed fracture; S32.019A Unspecified fracture of first lumbar vertebra, initial encounter for closed fracture; S32.029A Unspecified fracture of second lumbar vertebra, initial encounter for closed fracture; W11.XXXA Fall on and from ladder, initial encounter; Y99.0 Civilian activity done for income or pay; Z20.822 Contact with and (suspected) exposure to COVID-19
CPT/HCPCS: 70450; 71101; 71260; 72125; 72128; 74177; 80053; 80306; 85025; 87426; 96372; 96374; 99285; J1885; J2270; Q9967

== ENCOUNTER → 2021-10-03 10:23 | Outpatient (BNVA) | payer OTHER, SELFPAY | PROVIDERS: Referring Provider Physician Assistant; Visit Provider Orthopaedic Surgery | DX: S22.008A Other fracture of unspecified thoracic vertebra, initial encounter for closed fracture (principal); X58.XXXA Exposure to other specified factors, initial encounter; M47.894 Other spondylosis, thoracic region | CPT/HCPCS: 72020 ==

== ENCOUNTER 2022-11-04 11:19 | Emergency (ER) | payer OTHER, SELFPAY ==
[2022-11-04 11:39] VITALS: BP 161/91; PULSE 100; RESP 18; TEMP 36.8; O2SAT 96
--- NOTE | 2022-11-04 12:31 | XRR_ITS ---
PROCEDURE INFORMATION: Exam: XR Left Knee Exam date and time: 11/04/2022 12:37 PM Age: 62 years old Clinical indication: Injury or trauma; Fall; Blunt trauma; Knee; Left; Additional info: Pain, swelling, possible joint effusion TECHNIQUE: Imaging protocol: Radiologic exam of the Left knee. Views: 3 views. COMPARISON: No relevant prior studies available. FINDINGS: Bones/joints: Mild-moderate tricompartmental osteoarthritis most pronounced within the lateral knee compartment. Evidence of previous ACL repair. No fracture or dislocation. Soft tissues: Small joint effusion. XR/XR knee LT 3V* [id number] IMPRESSION: Mild-moderate tricompartmental osteoarthritis with accompanying joint effusion.
[2022-11-04] MEDS: ketorolac 60 mg/2 mL INJ IM (12:50)
--- NOTE | 2022-11-04 14:03 | ED_ITS ---
Documented by User: [email or web address] Cavanaugh 11/04/22 14:11 HPI - Extremity Problem General: Chief complaint: Extremity Problem,Nontraumatic Stated complaint: left knee pain Time Seen by Provider: 11/04/22 11:44 History of Present Illness: Patient is a 62-year-old man presents to the emergency department with left knee pain. Onset 5 days ago. This progressively worsened in that time. Patient reports that pain is worse after being up on his legs. He has developed so much swelling in his left knee that he has developed difficulty driving. Patient denies any trauma to the knee Swelling is noted to the left knee when comparing to the other side He does have surgical scar present. He states that was from an ACL repair years ago. Patient does not have routine problems with his knee Patient denies fever or chills. Associated symptoms: Deny chest pain, fever(s) or rash Review of Systems General: Reports: 10 or more systems reviewed and unremarkable except in HPI and below Const: Denies: fever(s), chills, change in appetite, change in weight, fatigue or malaise Eyes: Denies: change in vision, eye discomfort, eye discharge or eye redness ENMT: Denies: throat pain, enlarged tonsils, odynophagia, hoarseness, ear or mastoid pain, ear discharge, change in hearing, tinnitus, nasal discharge, nasal congestion, post nasal drip or sinus pain Card: Denies: chest pain, palpitations, irregular heart rhythm, edema, dyspnea on exertion, orthopnea or leg pain with exertion Resp: Denies: dyspnea, productive cough, non-productive cough, wheezing, stridor or chest congestion GI: Denies: abdominal pain, nausea, vomiting, dysphagia, diarrhea, constipation, bloating, GI cramping or hematochezia : Denies: flank pain, dysuria, urinary frequency, urinary urgency, urinary hesitancy, oliguria or hematuria Musc: Denies: neck pain, back pain, extremity pain, joint pain, joint swelling, joint redness, joint warmth or muscle weakness Skin/Breast: Denies: rash, pruritus, erythema, photosensitivity or new lesions Neuro: Denies: headache(s), numbness in extremities, weakness in extremities, sensory changes, lack of coordination, difficulty walking, frequent falls, dizziness, confusion, Slurred speech present, difficulty communicating thoughts, seizure-like activity or involuntary movements Endo: Denies: polyuria, polydipsia or tired all the time Ketan/Lymph: Denies: easy bruising or easy bleeding PFSH ED PFSH: Social History Smoking and tobacco status: never smoked Physical Exam Const: COMMON NORMALS: no acute distress, average body habitus, patient oriented x3, no limitations, healthy appearing, alert and well nourished GENERAL APPEARANCE: cooperative, comfortable and well developed; not in distress and not anxious ORIENTATION/CONSCIOUSNESS: Yes awake, Yes oriented to person, Yes oriented to place and Yes oriented to time Neck/C-Spine: COMMON NORMALS: full ROM, supple, no meningeal signs and no JVD GENERAL: Yes normal visual inspection CERVICAL SPINE: Yes cervical ROM normal Resp: COMMON NORMALS: normal respiratory effort, No retractions, No use of accessory muscles and clear to auscultation bilaterally EFFORT & INSPECTION: Yes able to speak in complete sentences, Yes symmetric chest movement, No abnormal respiratory pattern, No tachypneic and No respiratory distress AUSCULTATION: clear to auscultation bilaterally Cardio: COMMON NORMALS: no JVD, regular rate, regular rhythm and Peripheral pulses 2+ throughout RATE: regular rate RHYTHM: regular rhythm PERIPHERAL PULSES: Peripheral pulses 2+ throughout GI: COMMON NORMALS: Normal to inspection, nondistended, normoactive bowel sounds present, Soft to palpation and non-tender INSPECTION: Yes normal to inspection PALPATION: Yes Soft to palpation Back/Pelvis: COMMON NORMALS: thoracic and lumbar spine normal to inspection, no thoracic nor lumbar tenderness, thoraco-lumbar ROM normal and straight leg raise negative bilaterally GENERAL BACK: No ecchymosis THORACIC SPINE/UPPER BACK: Yes normal to inspection LUMBAR SPINE/LOWER BACK: Yes normal to inspection and Yes straight leg raise negative bilaterally Extremity: COMMON NORMALS: capillary refill normal NARRATIVE EXTREMITY EXAM: Left lower extremity: Skin is clean dry and intact Surgical scar to anterior knee distal to patella Swelling noted to the left knee It is warmer than the other extremity but no erythema There are no wounds Patient is able to do a straight leg raise Is able to flex his left knee to 90 degrees before it becomes painful He is able to fully extend it without difficulty Patient is able to dorsiflex plantarflex the foot Able to dorsiflex great toe Sensation intact to light touch at medial, lateral, dorsal, plantar surface of the foot and first webspace DP pulses palpable and cap refills less than 3 seconds GENERAL: Yes normal exam except as noted Neuro: COMMON NORMALS: patient oriented x3 SENSORIUM/ORIENTATION: Yes alert, Yes oriented to person, Yes oriented to place and Yes oriented to time MENINGEAL SIGNS: Yes no meningeal signs Skin: COMMON NORMALS: no rashes or lesions noted, no wounds, turgor normal, no jaundice, no petechiae and no mottling GENERAL SKIN EXAM: no rashes or lesions noted and turgor normal Course Vital Signs: Vital signs: Vital Signs Temperature 98.3 F 11/04/22 14:06 Pulse Rate 82 11/04/22 14:06 Respiratory Rate 15 11/04/22 14:06 Blood Pressure 144/80 11/04/22 14:06 Pulse Oximetry 93 11/04/22 14:06 Oxygen Delivery Me thod 11/04/22 14:06 MDM - Extremity (Nontraumatic) Medical Decision Making Patient was evaluated in the emergency department today for complaints of left knee pain. Differential diagnoses include fracture, arthritis, joint effusion. Joint effusion differentials include septic arthritis, gout, sterile effusion. I talked with patient about diagnostics and possible aspiration. We have obtained an XR of the left knee which reveals osteoarthritis as well as a joint effusion. I have treated his pain with Toradol and that did resolve some of his symptoms I talked with patient about his x-ray findings. He does have a moderate size effusion and aspiration may offer him some relief however, this is not benign and may cause an infection if infection is not already present. The other option I offered patient is to go home on anti-inflammatories and ice the extremity. If this is truly septic it will only get worse and he will return here. If its not his symptoms will slowly improve over time. Patient does not want an aspiration at this time. He will observe his symptoms and return here immediately if he develops any worsening swelling erythema or warmth. Patient and his were warned by a family member that this could be a DVT. Patient has no history or familial history. He does not have any calf pain and his pain is all isolated to the anterior knee. We reviewed warning signs or worrisome signs for DVT. I did offer the patient an ultrasound of the left lower extremity since he was so very concerned but after discussing symptoms we both agree that an ultrasound is not necessary at this time. At this time no further diagnostics are warranted. Patient will discharge home and will return to the emergency department promptly if he develops any worsening and swelling, pain, or if he develops redness and warmth. All questions answered in detail Lab Data Radiology Impressions Knee X-Ray 11/04/22 12:31 IMPRESSION: Mild-moderate tricompartmental osteoarthritis with accompanying joint effusion. Discharge Plan Discharge Patient Disposition: Home Clinical Impression: Arthritis of knee, Effusion of knee joint Condition: Stable Prescriptions: New meloxicam 7.5 mg tablet 7.5 mg PO DAILY 30 Days Qty: 30 0RF No Action metformin 500 mg tablet 500 mg PO DAILY glipizide 5 mg tablet 5 mg PO DAILY lisinopril 5 mg tablet 5 mg PO DAILY metaxalone 400 mg tablet 800 mg PO TID PRN (Reason: muscle pain) 7 Days Qty: 42 0RF oxycodone 5 mg capsule 5 - 10 mg PO Q4H PRN (Reason: pain) 7 Days Qty: 40 0RF Discharge Orders: Discharge ED (Routine); Ordered 11/04/22 Ordered By: Reuben Valles Discharge Diet: Advance as tolerated Discharge Activity: Resume usual activity Patient Instructions: Osteoarthritis (ED), Swollen Knee Joint (ED), Pain Management Activity Restrictions/Additional Instructions: Your x-ray report states: IMPRESSION: Mild-moderate tricompartmental osteoarthritis with accompanying joint effusion. Anti-inflammatories are going to be helpful along with ice. I am going to prescribe you a medication called meloxicam. You going to take this daily. While taking this medication do not take additional ibuprofen, naproxen, Advil, Aleve. These are very similar medications and if taking too much you can cause a gastric ulcer or hurt your kidneys. Ice your knee frequently. This will help with the swelling. It will take time for the joint effusion to reabsorb. If you are not better or if you are becoming worse follow-up with your primary doctor or orthopedic surgeon. Coding Level of Care Code ED [employer] F[employer] Exam Comprehensive Documented by User: Jake Martinez DO 11/05/22 06:08 HPI - Extremity Problem General: Chief complaint: Extremity Problem,Nontraumatic Stated complaint: left knee pain Time Seen by Provider: 11/04/22 11:44 PFSH ED PFSH: Social History Smoking and tobacco status: never smoked Course Vital Signs: Vital signs: Vital Signs Temperature 98.3 F 11/04/22 14:06 Pulse Rate 82 11/04/22 14:06 Respiratory Rate 15 11/04/22 14:06 Blood Pressure 144/80 11/04/22 14:06 Pulse Oximetry 93 11/04/22 14:06 Oxygen Delivery Me thod 11/04/22 14:06 MDM - Extremity (Nontraumatic) Medical Decision Making Patient was evaluated in the emergency department today for complaints of left knee pain. Differential diagnoses include fracture, arthritis, joint effusion. Joint effusion differentials include septic arthritis, gout, sterile effusion. I talked with patient about diagnostics and possible aspiration. We have obtained an XR of the left knee which reveals osteoarthritis as well as a joint effusion. I have treated his pain with Toradol and that did resolve some of his symptoms I talked with patient about his x-ray findings. He does have a moderate size effusion and aspiration may offer him some relief however, this is not benign and may cause an infection if infection is not already present. The other option I offered patient is to go home on anti-inflammatories and ice the extremity. If this is truly septic it will only get worse and he will return here. If its not his symptoms will slowly improve over time. Patient does not want an aspiration at this time. He will observe his symptoms and return here immediately if he develops any worsening swelling erythema or warmth. Patient and his were warned by a family member that this could be a DVT. Patient has no history or familial history. He does not have any calf pain and his pain is all isolated to the anterior knee. We reviewed warning signs or worrisome signs for DVT. I did offer the patient an ultrasound of the left lower extremity since he was so very concerned but after discussing symptoms we both agree that an ultrasound is not necessary at this time. At this time no further diagnostics are warranted. Patient will discharge home and will return to the emergency department promptly if he develops any worsening and swelling, pain, or if he develops redness and warmth. All questions answered in detail Chart reviewed and patient discussed with midlevel. Agree with assessment and plan. Lab Data Radiology Impressions Knee X-Ray 11/04/22 12:31 IMPRESSION: Mild-moderate tricompartmental osteoarthritis with accompanying joint effusion. Discharge Plan Discharge Patient Disposition: Home Clinical Impression: Arthritis of knee, Effusion of knee joint Condition: Stable Prescriptions: New meloxicam 7.5 mg tablet 7.5 mg PO DAILY 30 Days Qty: 30 0RF No Action metformin 500 mg tablet 500 mg PO DAILY glipizide 5 mg tablet 5 mg PO DAILY lisinopril 5 mg tablet 5 mg PO DAILY metaxalone 400 mg tablet 800 mg PO TID PRN (Reason: muscle pain) 7 Days Qty: 42 0RF oxycodone 5 mg capsule 5 - 10 mg PO Q4H PRN (Reason: pain) 7 Days Qty: 40 0RF Discharge Orders: Discharge ED (Routine); Ordered 11/04/22 Ordered By: Reuben Valles Discharge Diet: Advance as tolerated Discharge Activity: Resume usual activity Patient Instructions: Osteoarthritis (ED), Swollen Knee Joint (ED), Pain Management Activity Restrictions/Additional Instructions: Your x-ray report states: IMPRESSION: Mild-moderate tricompartmental osteoarthritis with accompanying joint effusion. Anti-inflammatories are going to be helpful along with ice. I am going to prescribe you a medication called meloxicam. You going to take this daily. While taking this medication do not take additional ibuprofen, naproxen, Advil, Aleve. These are very similar medications and if taking too much you can cause a gastric ulcer or hurt your kidneys. Ice your knee frequently. This will help with the swelling. It will take time for the joint effusion to reabsorb. If you are not better or if you are becoming worse follow-up with your primary doctor or orthopedic surgeon. Coding Level of Care Code ED [employer] Fwd Exam Comprehensive
[2022-11-04 14:06] VITALS: BP 144/80; PULSE 82; RESP 15; TEMP 36.8; O2SAT 93
== END 2022-11-04 14:11 | disposition home or self-care (01) ==
PROVIDERS: Emergency Provider Nurse Practitioner
DX: M17.12 Unilateral primary osteoarthritis, left knee (principal); M25.462 Effusion, left knee; Z79.84 Long term (current) use of oral hypoglycemic drugs
CPT/HCPCS: 73562; 96372; 99284; J1885